=== PATIENT | female | born 1985 | race Caucasian/White ===

== ENCOUNTER 2020-12-19 12:25 | Emergency (ER) | payer MEDICAID ==
[~2020-12-19] VITALS: Ht 162.6 cm; Wt 57.0 kg
--- NOTE | 2020-12-19 12:50 | NUR ---
PT TO ROOM FROM TRIAGE, CHANGED INTO GOWN, MONITORS IN PLACE. PT STATES SHE FELL DOWN SOME STAIRS AT [facility] ABOUT 30 MINUTE AGO AND BROKE HER LEFT ARM. PT HAS BRUISING TO LEFT UPPER ARM, STATED SHE IS UNABLE TO MOVE HER ARM AT ALL. HAS NUMBNESS TINGLING IN FINGERS OF LEFT HAND & DOWN HER LEGS
--- NOTE | 2020-12-19 13:06 | NUR ---
ERP AT BS
[2020-12-19] MEDS ORDERED: HYDROcodone/APAP 10/325 MG TABLET ONE (13:20)
--- NOTE | 2020-12-19 13:27 | NUR ---
PT MEDICATED. PT WAS EATING SANDWHICH, ATE APPROX 1/2 SANDWHICH, TOLD NOT TO EAT/DRINK ANYMORE. PT STS BEFORE THIS LAST ORAL INTAKE LAST NIGHT BUT HAS BEEN UP ALL NIGHT DRINKING ETOH. MADE AWARE. AWAITING XR.
[2020-12-19] MEDS ORDERED: HYDROcodone/APAP 10/325 MG TABLET PO ONE (13:30)
--- NOTE | 2020-12-19 13:43 | NUR ---
PT TO IMAGING
[2020-12-19 13:50] VITALS: BP 113/82
--- NOTE | 2020-12-19 13:51 | NUR ---
PT BACK FROM IMAGING, CONNECTED TO MONITORS. CALL LIGHT WITHIN REACH. FRIEND AT BS
--- NOTE | 2020-12-19 14:52 | NUR ---
ERP AT BS
--- NOTE | 2020-12-19 15:20 | NUR ---
Patient given discharge instructions and they have confirmed that they understand the instructions. Patient ambulatory with steady gait.
== END 2020-12-19 15:21 | disposition home or self-care (01) ==
LOC: ED 13:57
DX: S70.12XA Contusion of left thigh, initial encounter (principal); S40.022A Contusion of left upper arm, initial encounter; F17.200 Nicotine dependence, unspecified, uncomplicated; W18.30XA Fall on same level, unspecified, initial encounter; Y93.89 Activity, other specified; Y92.59 Other trade areas as the place of occurrence of the external cause; Y99.8 Other external cause status
CPT/HCPCS: 99283